=== PATIENT | female | born 1975 | race Caucasian/White ===

== ENCOUNTER 2018-08-24 03:40 | Emergency (ER) | payer OTHER ==
[~2018-08-24] VITALS: Ht 157.5 cm; Wt 127.0 kg
[2018-08-24 04:01] LABS: URINE BILIRUBIN NEGATIVE (Negative); URINE BLOOD NEGATIVE (Negative); URINE CLARITY CLEAR; URINE COLOR YELLOW; URINE GLUCOSE-RANDOM* NEGATIVE (Negative); URINE KETONES NEGATIVE (Negative); URINE LEUKOCYTES-REFLEX TRACE (Negative); URINE NITRITE-REFLEX NEGATIVE (Negative); URINE PROTEIN (DIPSTICK) NEGATIVE (Negative); URINE SPECIFIC GRAVITY >= 1.030 (1.005-1.035); URINE UROBILINOGEN 0.2 E.U./dl (0.2-1.0)
[2018-08-24 04:25] LABS: ABSOLUTE NEUTROPHILS 11.4 thou/uL (1.4-8.2); BASOPHILS 0.7 % (0.0-2.0); EOSINOPHILS 1.7 % (0.0-3.0); HEMOGLOBIN 12.6 gm/dL (12.0-15.0); LYMPHOCYTES 11.3 % (24.0-44.0); MCH 28.8 pg (26.0-34.0); MONOCYTES 6.2 % (1.0-8.0); PLATELET COUNT 333 thou/uL (150-400); POLYS 80.1 % (36.0-66.0); RBC 4.36 mil/uL (4.20-5.00); RDW 14.4 % (10.5-14.5); WBC 14.2 thou/uL (4.0-11.0)
[2018-08-24 04:36] LABS: ANION GAP 13 mmol/L (7-16); BUN 9 mg/dL (7-18); CALCIUM 9.2 mg/dL (8.5-10.1); CHLORIDE 103 mmol/L (98-107); CO2 24 mmol/L (21-32); GLUCOSE 120 mg/dL (74-106); POTASSIUM 3.6 mmol/L (3.5-5.1); SODIUM 140 mmol/L (136-145)
[2018-08-24 04:46] LABS: ALBUMIN 3.5 g/dL (3.4-5.0); LIPASE 70 U/L (73-393); SGOT 21 U/L (15-37); SGPT 37 U/L (30-65); TOTAL BILIRUBIN 0.5 mg/dL (<0.1-1.0); TOTAL PROTEIN 6.7 g/dL (6.4-8.2); TROPONIN-I <0.06 ng/mL (<0.06)
[2018-08-24] MEDS ORDERED: GABAPENTIN 100100 MG PO (06:15)
[2018-08-24] MEDS ORDERED: CYMBALTA20 MG PO (06:15)
[2018-08-24 06:16] VITALS: BP 141/82
[2018-08-24] MEDS ORDERED: TRAMADOL 50 MG50 MG PO (06:32)
--- NOTE | 2018-08-24 07:52 | EKG ---
[address] [place] [address] ELECTROCARDIOGRAM REPORT Name: GEORGIE VAUGHN Room #: [facility]#: [id number] ������������������ Admission: 08/24/18 ������������������ Attend Phys: Discharge: 08/24/18 ������������������ Date of : 73 Report #: [id number] ����������������������������������������������������������������� [id number] THIS REPORT FOR: //name// [facility] ED Test Date: 2018-08-24 Test Time: 04:32:08 Pat Name: GEORGIE VAUGHN Department: Room: Gender: F [employer]oc Director [employer]: izzy lange : 1975 Requested By: Dax Dong Order Number: [id number] MD: Jose Roberto Porter Measurements Intervals [place] Rate: 99 P: 48 ND: 151 QRS: 14 QRSD: 87 T: 33 QT: 346 QTc: 444 Interpretive Statements Sinus rhythm Low voltage, precordial leads Abnormal R-wave progression, early transition No previous ECG available for comparison Electronically Signed On 08-24-2018 7:51:55 CDT by Jose Roberto Porter [email or web address] ��������������������������������������������� <ELECTRONICALLY SIGNED> ���������������������������������������� By: Jose Roberto Porter MD, [facility] ��������������������������������������������� 08/24/18 0751 0432 0432 Jose Roberto Porter MD, FACC /EPI
== END 2018-08-24 06:34 | disposition home or self-care (01) ==
LOC: ER 03:40
PROVIDERS: Emergency Medicine
DX: N39.0 Urinary tract infection, site not specified (principal); D72.829 Elevated white blood cell count, unspecified; G89.4 Chronic pain syndrome; K76.0 Fatty (change of) liver, not elsewhere classified; Z90.49 Acquired absence of other specified parts of digestive tract; Z98.890 Other specified postprocedural states